=== PATIENT | female | born 1960 | race Caucasian/White ===

== ENCOUNTER 2020-02-20 14:34 | Outpatient (CLI) | payer SELFPAY ==
--- NOTE | 2020-02-20 14:46 | MM_ITS ---
WS: [id number] BILATERAL DIGITAL SCREENING MAMMOGRAPHY WITH CAD CLINICAL INFORMATION: SCREENING HISTORY: Screening mammogram. No current complaints. COMPARISON: None. TECHNIQUE: Bilateral CC and MLO views. FINDINGS: The breasts are composed of heterogeneous fibroglandular density tissue, which can limit the detectio n of small underlying mass lesions. No suspicious mass, asymmetry, calcifications, or architectural d istortion. No evidence of malignancy. Vascular calcification. MM/[id number] IMPRESSION: BI-RADS: 2-Benign FOLLOW UP: 1 Year Follow-up Recommend return to annual screening mammography.
== END 2020-02-20 14:35 | disposition home or self-care (01) ==
LOC: RADSHAW 14:39
PROVIDERS: PCP Nurse Practitioner Family; Visit Provider Nurse Practitioner Family
DX: Z12.31 Encounter for screening mammogram for malignant neoplasm of breast (principal)
CPT/HCPCS: 77067

== ENCOUNTER 2021-07-07 10:18 | Outpatient (CLI) | payer OTHER, SELFPAY ==
--- NOTE | 2021-07-07 10:29 | MM_ITS ---
WS: [id number] SCREENING DIGITAL MAMMOGRAM WITH CAD HISTORY: SCREENING COMPARISON: 02/20/2020. Bilateral CC and MLO views submitted. Computer aided detection analyzed. Breast composition: There are scattered areas of fibroglandular density. No suspicious masses or calc ifications. No distortion. MM/[id number] IMPRESSION: BI-RADS: 1-Negative FOLLOW UP: 1 Year Follow-up
== END 2021-07-07 10:19 | disposition home or self-care (01) ==
LOC: RADSHAW 10:25
PROVIDERS: PCP Family Medicine; Visit Provider Family Medicine
DX: Z12.31 Encounter for screening mammogram for malignant neoplasm of breast (principal)
CPT/HCPCS: 77067

== ENCOUNTER 2022-10-17 13:03 | Outpatient (CLI) | payer OTHER, SELFPAY ==
--- NOTE | 2022-10-17 13:19 | MM_ITS ---
WS: [id number] BILATERAL 3D TOMOSYNTHESIS DIGITAL SCREENING MAMMOGRAPHY WITH CAD CLINICAL INFORMATION: SCREENING HISTORY: Screening mammogram. No current complaints. COMPARISON: July 07, 2021 TECHNIQUE: Bilateral CC and MLO views. FINDINGS: The breasts are composed of heterogeneous fibroglandular density tissue, which can limit the detectio n of small underlying mass lesions. No suspicious mass, asymmetry, calcifications, or architectural d istortion. No evidence of malignancy. Vascular calcification. MM/[id number] IMPRESSION: BI-RADS: 2-Benign FOLLOW UP: 1 Year Follow-up Recommend return to annual screening mammography.
== END 2022-10-17 13:04 | disposition home or self-care (01) ==
LOC: RAD 13:05
PROVIDERS: PCP Family Medicine; Visit Provider Family Medicine
DX: Z12.31 Encounter for screening mammogram for malignant neoplasm of breast (principal)
CPT/HCPCS: 77063; 77067

== ENCOUNTER 2023-02-01 17:34 | Emergency (ER) | payer SELFPAY ==
[2023-02-01 17:42] VITALS: BP 160/76; PULSE 71; RESP 16; TEMP 37; O2SAT 97; BMI 30.9
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
== END 2023-02-01 18:57 | disposition home or self-care (01) ==
PROVIDERS: Emergency Provider Emergency Medicine; PCP Family Medicine
DX: S39.012A Strain of muscle, fascia and tendon of lower back, initial encounter (principal); V89.2XXA Person injured in unspecified motor-vehicle accident, traffic, initial encounter
CPT/HCPCS: 72072; 72100; 99283

== ENCOUNTER 2023-02-20 14:28 | Emergency (ER) | payer MEDICARE, SELFPAY ==
[2023-02-20 14:50] VITALS: BP 144/88; PULSE 88; RESP 14; TEMP 36.7; O2SAT 97; BMI 31.6
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
== END 2023-02-20 16:52 | disposition home or self-care (01) ==
PROVIDERS: Emergency Provider Physician Assistant; PCP Family Medicine
DX: S29.012A Strain of muscle and tendon of back wall of thorax, initial encounter (principal); V59.40XA Driver of pick-up truck or van injured in collision with unspecified motor vehicles in traffic accident, initial encounter
CPT/HCPCS: 72072; 99283

== ENCOUNTER 2023-09-18 18:40 | Emergency (ER) | payer MEDICARE, SELFPAY ==
[2023-09-18 18:50] VITALS: BP 170/77; PULSE 64; RESP 16; TEMP 36.6; O2SAT 97; BMI 34.9
--- NOTE | 2023-09-18 19:18 | ED_ITS ---
HPI - Female Genitourinary 2 General: Chief complaint: Urogenital-Female Stated complaint: Vaginal Issues Time Seen by Provider: 09/18/23 18:58 Source: patient Mode of arrival: ambulatory Limitations: no limitations History of Present Illness: 63yo female presents with family for con cerns of both her uterus and her bladder being prolapse. Patient states that she has had her uterus prolapse previously, but has always been able to get it back in. States that she has not yet seen her THERAPEUTIC RECREATION LEADER for her concerns. Reports that she did call today to get an appointment, but they did not call her back yet. Patient states that she is able to void and does have urinary frequency, but does not think that is anything new. Patient denies any fever, abdominal pain, vomiting, diarrhea. On exam, patient indicated pain to the mid abdomen, sharp in nature. Associated symptoms: Deny abdominal pain Review of Systems 2 Const: Denies: fever(s) or chills GI: Denies: abdominal pain or vomiting : Reports: urinary frequency; Denies: difficulty voiding Musc: Denies: back pain Physical Exam 2 Const: COMMON NORMALS: no acute distress and alert GENERAL APPEARANCE: c ooperative ORIENTATION/CONSCIOUSNESS: Yes awake OTHER: Patient is ambulatory to the exam room unassisted. She is sitting upright on the stretcher no acute distress. She is able to give history with no difficulty. Family is at bedside HENMT: COMMON NORMALS: normocephalic HEAD & SCALP: normocephalic Chest: CHEST: Yes Symmetrical chest wall rise Resp: COMMON NORMALS: normal respiratory effort EFFORT & INSPECTION: Yes able to speak in complete sentences Cardio: COMMON NORMALS: regular rate RATE: regular rate GI: COMMON NORMALS: Soft to palpation PALPATION: Yes Soft to palpation, Yes Tenderness to palpation present (GI) (midline low abdomen, just below umbilicus) Details: LLQ (mild) and other, No Guarding due to palpation present (GI) and No Rigid due to palpation Extremity: COMMON NORMALS: full ROM Neuro: SENSORIUM/ORIENTATION: Yes alert Psych: COMMON NORMALS: cooperative ATTITUDE: Yes calm Course 2 Reevaluation(s): Reevaluation #1: Prolasped vaginal wall reduced with no difficulty. Patient tolerated well. Time: 19:35 Vital Signs: Vital signs: Vital Signs Temperature 97.8 F 09/18/23 18:50 Pulse Rate 65 09/18/23 20:31 Respiratory Rate 16 09/18/23 20:31 Blood Pressure 164/66 09/18/23 20:31 Pulse Oximetry 97 09/18/23 20:31 Oxygen Delivery Me thod Room Air 09/18/23 20:31 MDM - Female Medical Decision Making 63yo female here with family for concern of prolapsed uterus and bladder. Patient states that she has had prolapsed uterus before, but was always able to get it back in. States that she has not yet seen her THERAPEUTIC RECREATION LEADER for her concerns. Patient does also report urinary frequency. However, on exam, patient did indicate that she had pain to just under her umbilicus midline and had left lower quadrant tenderness. Patient denies fever, chills, abdominal pain, vomiting, diarrhea, difficulty passing urine. Patient is nontoxic in appearance. Vital signs are stable. Prior differentials to include urinary tract infection, diverticulitis, neoplasm, viral infection White blood cell count noted to be elevated at 16.77. BUN is elevated at 32 with a creatinine of 1.4 and GFR of 37. Glucose is elevated at 191. Lipase is noted to be elevated at 86. Chest x-ray with no acute abnormalities noted. UA with 3+ protein, 4+ glucose, 3+ blood, nitrite positive. Urine microscopy with too numerous to count white blood cells, 25-40 white blood cells, and 3+ bacteria. Contrasted CTAP obtained due to left lower quadrant tenderness on exam and reveals hepatic steatosis, diverticulosis with no indication of diverticulitis, and findings suggestive of an ascending urinary tract infection bilaterally, but no evidence of pyelonephritis at this time. Patient did receive 500 mL normal saline bolus as well as 2 g ceftriaxone while in the emergency department. Prescription for cefdinir was sent to patient's pharmacy for continuation of antibiotic therapy for acute cystitis. A referral was placed to Dr. Hagen, PLANT PROPAGATOR for the prolapsed vaginal wall. Recommend she follow- up with her primary care in about a week for recheck to ensure resolution of the urinary tract infection and to discuss the incidental findings of diverticulosis and hepatic steatosis. Advised to return to the emergency department if any rapid worsening symptoms, onset of fever associated with worsening, and as needed. Patient and family state understanding and have no further questions or concerns at this time. Differential Diagnosis Likely abdominal pain and diverticulitis Medical Records I reviewed the patient's medical records. Lab Data I reviewed the patient's lab results. 09/18/23 19:57 09/18/23 19:57 Radiology Impressions Chest X-Ray 09/18/23 20:05 IMPRESSION: 1. No acute cardiopulmonary abnormality. Abdomen/Pelvis CT 09/18/23 20:30 IMPRESSION: 1. Findings suggestive of ascending urinary infection bilaterally. No evidence of pyelonephritis. Laboratory Results WBC 16.77 10^3/uL (3.29-11.43) H 09/18/23 19:57 RBC 4.28 10^6/uL (3.85-5.65) 09/18/23 19:57 Hgb 12.30 g/dL (11.27-16.99) 09/18/23 19:57 Hct 38.0 % (36-47) 09/18/23 19:57 MCV 88.8 fl (85-98) 09/18/23 19:57 MCH 28.7 pg (27-33) 09/18/23 19:57 MCHC 32.4 g/dL (30-55) 09/18/23 19:57 RDW 12.1 % (12.1-15.1) 09/18/23 19:57 Plt Count 314 10^3/cmm (157-399) 09/18/23 19:57 MPV 10.6 fL (7.4-10.4) H 09/18/23 19:57 Neut % (Auto) 84.9 % 09/18/23 19:57 Lymph % (Auto) 9.2 % 09/18/23 19:57 [place] % (Auto) 4.9 % 09/18/23 19:57 Eos % (Auto) 0.1 % 09/18/23 19:57 Baso % (Auto) 0.5 % 09/18/23 19:57 Neut # (Auto) 14.24 10^3/uL (1.8-7.7) H 09/18/23 19:57 Lymph # (Auto) 1.5 10^3/uL (0.8-4.8) 09/18/23 19:57 [place] # (Auto) 0.8 10^3/uL (0.2-0.9) 09/18/23 19:57 Eos # (Auto) 0.0 10^3/uL (0.0-0.8) 09/18/23 19:57 Baso # (Auto) 0.1 10^3/uL (0.0-0.1) 09/18/23 19:57 Nucleated RBC % (auto) 0 % 09/18/23 19:57 Nucleated RBCs # 0.0 /100WBC 09/18/23 19:57 Sodium 135 mmol/L (136-145) L 09/18/23 19:57 Potassium 5.0 mmol/L (3.5-5.1) 09/18/23 19:57 Chloride 100 mmol/L (98-107) 09/18/23 19:57 Carbon Dioxide 24 mmol/L (22-29) 09/18/23 19:57 Anion Gap 16.0 (5-19) 09/18/23 19:57 BUN 32 mg/dL (8-23) H 09/18/23 19:57 Creatinine 1.4 mg/dL (0.5-0.9) H 09/18/23 19:57 GFR Calculation 37.7 mL/min (90-130) L 09/18/23 19:57 Glucose 191 mg/dL (65-115) H 09/18/23 19:57 Calculated Osmolality 292 mOsm/kg (285-295) 09/18/23 19:57 Calcium 9.5 mg/dL (8.5-10.5) 09/18/23 19:57 Total Bilirubin 0.4 mg/dL (0.15-1.2) 09/18/23 19:57 AST 17 U/L (0-32) 09/18/23 19:57 ALT 17 U/L (0-33) 09/18/23 19:57 Alkaline Phosphatase 83 U/L (35-105) 09/18/23 19:57 Total Protein 8.2 g/dL (6.6-8.7) 09/18/23 19:57 Albumin 4.0 g/dL (3.5-5.2) 09/18/23 19:57 Globulin 4.2 g/dL (1.3-4.6) 09/18/23 19:57 Lipase 86 U/L (13-60) H 09/18/23 19:57 Urine Color Light yellow (Yellow) 09/18/23 20:25 Urine Appearance Cloudy (CLEAR) A 09/18/23 20:25 Urine pH 6 (5-7) 09/18/23 20:25 Ur Specific [place] 1.010 (1.005-1.030) 09/18/23 20:25 Urine Protein 3+ (Negative) H 09/18/23 20:25 Urine Glucose (UA) 4+ (Normal) H 09/18/23 20:25 Urine Ketones 1+ (Negative) H 09/18/23 20:25 Urine Blood 3+ (Negative) H 09/18/23 20:25 Urine Nitrate Positive (Negative) H 09/18/23 20:25 Urine Bilirubin Neg (Negative) 09/18/23 20: Urine Urobilinogen Neg mg/dL (Negative) 09/18/23 20:25 Ur Leukocyte Esterase 2+ (Negative) H 09/18/23 20:25 Urine RBC 25-40 /hpf (0-2) H 09/18/23 20:25 Urine WBC Too numerous to cnt /hpf (0-5) H 09/18/23 20:25 Ur Squamous Epith Cells None /hpf (0-5) 09/18/23 20:25 Amorphous Sediment Not Reportable 09/18/23 20:25 Urine Bacteria 3+ /hpf (NONE) H 09/18/23 20:25 All radiology interpretation(s) finalized by discharge Discharge Plan Discharge Patient Disposition: Home Clinical Impression: Urinary tract infection, Prolapse of vaginal wall, Diverticulosis, Steatosis of liver, Elevated serum creatinine Condition: Stable Prescriptions: New cefdinir 300 mg capsule 300 mg PO BID Qty: 14 0RF No Action methocarbamol 750 mg tablet 750 mg PO Q6H PRN (Reason: spasms) Qty: 20 0RF Naprosyn 500 mg tablet 500 mg PO BID PRN (Reason: pain) Qty: 20 0RF Discharge Orders: Discharge ED (Routine); Ordered 09/18/23 Ordered By: Huang Warren Referrals: Gautam Woodward MD [Primary Care Provider] - Jesus Hagen MD [Physician] - (Vaginal wall prolapse) Discharge Diet: Usual diet Discharge Activity: Resume usual activity Patient Instructions: Diverticulosis (ED), Urinary Tract Infection in Women (ED), Non-Alcoholic Fatty Liver Disease (ED), Diverticulitis Diet (ED), Anterior Vaginal Repair (DC) Activity Restrictions/Additional Instructions: Your urine and the CT scan did indicate a urinary tract infection that was working its way to your kidneys. The infection has not yet reached your kidneys, but we have started treatment as if it were in your kidneys to be safe. You received IV antibiotics while in the emergency department and a prescription of cefdinir has been sent to your pharmacy for continuation of antibiotic therapy for the urinary tract infection The CT scan did have incidental findings of diverticulosis as well as hepatic steatosis. Please see provided handouts with information about these findings. 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
--- NOTE | 2023-09-18 20:05 | XRR_ITS ---
PROCEDURE INFORMATION: Exam: XR Chest Exam date and time: 09/18/2023 8:07 PM Age: 63 years old Clinical indication: Cough TECHNIQUE: Imaging protocol: Radiologic exam of the chest. Views: 1 view. COMPARISON: CR XR thoracic spine 3V* [id number] 02/20/2023 4:14 PM FINDINGS: Lungs: No focal consolidation. Pleural spaces: No evidence of pneumothorax. No evidence of pleural effusion. Heart/Mediastinum: Cardiomediastinal silhouette is within normal limits. Bones/joints: No evidence of acute osseous abnormality. XR/XR chest 1V portable [id number] IMPRESSION: 1. No acute cardiopulmonary abnormality.
[2023-09-18 20:15] LABS: Basophils # 0.1 10^3/uL (0.0-0.1); Basophils % 0.5 %; Eosinophils % 0.1 %; Lymphocytes # 1.5 10^3/uL (0.8-4.8); Lymphocytes % 9.2 %; Mean Corpuscular HGB Conc 32.4 g/dL (30-55); Mean Corpuscular Hemoglobin 28.7 pg (27-33); Mean Corpuscular Volume 88.8 fl (85-98); Mean Platelet Volume 10.6 fL (7.4-10.4); Monocytes # 0.8 10^3/uL (0.2-0.9); Monocytes % 4.9 %; Neutrophils # 14.24 10^3/uL (1.8-7.7); Neutrophils % 84.9 %; Nucleated Red Blood Cells % 0 %; Platelet Count 314 10^3/cmm (157-399); Red Blood Count 4.28 10^6/uL (3.85-5.65); Red Cell Distribution Width 12.1 % (12.1-15.1); White Blood Count 16.77 10^3/uL (3.29-11.43)
[2023-09-18 20:20] LABS: Alanine Aminotransferase 17 U/L (0-33); Alkaline Phosphatase 83 U/L (35-105); Aspartate Amino Transferase 17 U/L (0-32); Blood Urea Nitrogen 32 mg/dL (8-23); Calcium 9.5 mg/dL (8.5-10.5); Carbon Dioxide 24 mmol/L (22-29); Chloride 100 mmol/L (98-107); Globulin 4.2 g/dL (1.3-4.6); Glomerular Filtration Rate 37.7 mL/min (90-130); Glucose 191 mg/dL (65-115); Lipase 86 U/L (13-60); Osmolality Calculated 292 mOsm/kg (285-295); Sodium 135 mmol/L (136-145); Total Bilirubin 0.4 mg/dL (0.15-1.2); Total Protein 8.2 g/dL (6.6-8.7)
[2023-09-18 20:28] VITALS: BP 164/66; PULSE 60; O2SAT 100
--- NOTE | 2023-09-18 20:30 | CTR_ITS ---
PROCEDURE INFORMATION: Exam: CT Abdomen And Pelvis With Contrast Exam date and time: 09/18/2023 8:59 PM Age: 63 years old Clinical indication: Abdominal pain; Localized; Left lower quadrant (llq); Patient HX: C/O llq pain. History of uterine prolapse. ; Additional info: Llq abd pain TECHNIQUE: Imaging protocol: Computed tomography of the abdomen and pelvis with contrast. Radiation optimization: All CT scans at this facility use at least one of these dose optimization techniques: automated exposure control; mA and/or kV adjustment per patient size (includes targeted exams where dose is matched to clinical indication); or iterative reconstruction. Contrast material: OMNI 350; Contrast volume: 80 ml; Contrast route: INTRAVENOUS (IV); COMPARISON: CR (PELVIS, ) 02/01/2023 6:06 PM RADIATION DOSE METRICS: Total DLP (mGy-cm): 983.15 FINDINGS: Lungs: Subsegmental bibasilar atelectasis. The visualized lung bases are otherwise grossly clear. Diaphragm: No evidence of diaphragmatic defect. Liver: Hepatic steatosis. No evidence of focal hepatic lesion. Gallbladder and bile ducts: Unremarkable. No intra-hepatic or extra-hepatic biliary dilatation. Pancreas: Unremarkable. Spleen: Multiple splenic calcifications compatible with sequela of a remote granulomatous process. Otherwise grossly unremarkable. Adrenal glands: Indeterminate left adrenal nodules measuring up to 2 cm. If not previously characterized, this can be further evaluated with nonemergent adrenal protocol CT or MRI. Kidneys and ureters: Bilateral peripelvic and periureteral inflammatory changes with the urothelial thickening suggestive of ascending urinary infection. No evidence of pyelonephritis.There is a simple appearing left-sided renal cyst for which dedicated imaging follow-up is not required. No ureteral stone. Stomach and bowel: Diverticulosis without evidence of acute diverticulitis. No bowel obstruction or perienteric inflammatory changes. Appendix: The appendix is not visualized, however there are no findings to suggest appendicitis. Intraperitoneal space: No evidence of free air or fluid collection. Vasculature: Mild aortobiiliac atherosclerosis without aneurysmal dilatation or dissection. The celiac trunk, SMA and NICOLE are grossly patent. No evidence of IVC thrombus. The portal vein, SMV and splenic veins are grossly patent. Lymph nodes: No adenopathy. Urinary bladder: Moderate diffuse bladder wall thickening/haziness. Otherwise grossly unremarkable. Reproductive: Grossly unremarkable. Bones/joints: No evidence of acute fracture or aggressive osseous lesion. Soft tissues: No evidence of fluid collection or hematoma in the superficial soft tissues. CT/CT abdomen pelvis w con* [id number] IMPRESSION: 1. Findings suggestive of ascending urinary infection bilaterally. No evidence of pyelonephritis.
[2023-09-18 20:31] VITALS: BP 164/66; PULSE 65; RESP 16; O2SAT 97
[2023-09-18 20:50] LABS: Add Urine Microscopic? YES; Bilirubin Urine Neg (Negative); Blood Urine 3+ (Negative); Glucose Urine UA 4+ (Normal); Ketones Urine 1+ (Negative); Leukocyte Esterase Urine 2+ (Negative); Nitrate Urine Positive (Negative); Protein Urine 3+ (Negative); Urine Appearance Cloudy (CLEAR); Urine Color Light yellow (Yellow); Urobilinogen Urine Neg (Negative); pH Urine 6 (5-7)
[2023-09-18 20:51] LABS: Bacteria Urine 3+ /hpf; RBC Urine 25-40 /hpf (0-2); WBC Urine TOO NUMEROUS TO CNT /hpf (0-5)
[2023-09-18 20:52] LABS: Add Urine Culture? Yes
[2023-09-18] MEDS: iohexol 350 mg/mL 500 mL Btl (per mL) IV (21:02)
[2023-09-18] MEDS: sodium chloride 0.9% 500 ML 999 ML IV (22:30)
[2023-09-18] MEDS: cefTRIAXone 2,000 MG in sodium chloride 0.9% (plus) 50 ML 100 MG IV (22:30)
[2023-09-18 23:42] VITALS: BP 147/67; PULSE 80; RESP 16; O2SAT 100
== END 2023-09-18 23:45 | disposition home or self-care (01) ==
PROVIDERS: Emergency Provider Nurse Practitioner; PCP Family Medicine
DX: N81.10 Cystocele, unspecified (principal); N39.0 Urinary tract infection, site not specified; K57.90 Diverticulosis of intestine, part unspecified, without perforation or abscess without bleeding; K76.0 Fatty (change of) liver, not elsewhere classified; R74.8 Abnormal levels of other serum enzymes
CPT/HCPCS: 71045; 74177; 80053; 81001; 83690; 85025; 87077; 87086; 87186; 96365; 99285; J0696; J7040; Q9967

== ENCOUNTER 2023-11-15 13:09 | Outpatient (CLI) | payer MEDICARE, SELFPAY ==
--- NOTE | 2023-11-15 13:12 | XR_ITS ---
WS: [id number] DEXA (DUAL ENERGY X-RAY ABSORPTIOMETRY) Bone mineral density was performed using a [employer] machine. HISTORY: OSTEOPOROSIS SCREENING COMPARISON: None available. Lumbar spine BMD (L1-L4): 1.401 g/cm2 T score: 1.8 Z score: 3.1 Total hip BMD: Left: 0.906 g/cm2. T score: -0.8 Z score: 0.2 Right: 0.930 g/cm2. T score: -0.6 Z score: 0.4 10 year probability of a major osteoporotic fracture is 10.4%. IMPRESSION: NORMAL BONE MINERAL DENSITY based upon the WHO classification for females.
--- NOTE | 2023-11-15 13:12 | MM_ITS ---
WS: [id number] BILATERAL 3D TOMOSYNTHESIS DIGITAL SCREENING MAMMOGRAPHY WITH CAD CLINICAL INFORMATION: SCREENING HISTORY: Screening mammogram. No current complaints. COMPARISON: 2022 TECHNIQUE: Bilateral CC and MLO views. FINDINGS: The breasts are composed of heterogeneous fibroglandular density tissue, which can limit the detectio n of small underlying mass lesions. No suspicious mass, asymmetry, calcifications, or architectural d istortion. No evidence of malignancy. Vascular calcification. IMPRESSION: MM/[place] [id number] BI-RADS: 2-Benign FOLLOW UP: 1 Year Follow-up Recommend return to annual screening mammography.
== END 2023-11-15 13:10 | disposition home or self-care (01) ==
LOC: RAD 13:09
PROVIDERS: PCP Family Medicine; Visit Provider Family Medicine
DX: Z12.31 Encounter for screening mammogram for malignant neoplasm of breast (principal); Z13.820 Encounter for screening for osteoporosis; Z78.0 Asymptomatic menopausal state
CPT/HCPCS: 77063; 77067; 77080

== ENCOUNTER 2024-02-20 15:18 | Observation (INO) | payer MEDICARE, SELFPAY ==
[2024-02-12 10:22] LABS: Basophils % 0.5 %; Eosinophils # 0.1 10^3/uL (0.0-0.8); Eosinophils % 1.5 %; Hematocrit 39.2 % (36-47); Lymphocytes # 2.7 10^3/uL (0.8-4.8); Lymphocytes % 30.9 %; Mean Corpuscular HGB Conc 32.4 g/dL (30-55); Mean Corpuscular Hemoglobin 29.3 pg (27-33); Mean Corpuscular Volume 90.3 fl (85-98); Mean Platelet Volume 10.9 fL (7.4-10.4); Monocytes # 0.5 10^3/uL (0.2-0.9); Monocytes % 6.1 %; Neutrophils # 5.36 10^3/uL (1.8-7.7); Neutrophils % 60.7 %; Nucleated Red Blood Cells % 0 %; Platelet Count 226 10^3/cmm (157-399); Red Blood Count 4.34 10^6/uL (3.85-5.65); White Blood Count 8.83 10^3/uL (3.29-11.43)
--- NOTE | 2024-02-12 10:27 | ANES.PREANE2 ---
Pre-Anesthetic Assessment Height/Weight: Height 1.52 m Preop Diagnosis: uterovaginal prolapse, cystocele and rectocele Operation Date: 02/20/24 10:30 Proposed Procedures p Total Vaginal Hysterectomy 39034, 69830, 76937, 24299, N81.2(Not Applicable) - MD july Ladnon Salpingo-Oophorectomy (Vaginal)(Bilateral) - MD july Landon Anterior Repair Anterior Colporrhaphy(Not Applicable) - MD july Landon Posterior Repair Posterior Colporrhaphy(Not Applicable) - MD july Landon Sling(Not Applicable) - MD july Landon Sacrospinous Ligament Suspension Sacrospinous Fixation(Not Applicable) - Aaron Allen MD Familial anesthetic complications: Noen Was Beta Peter taken within 24 hours: N/A Was Clonidine taken within 24 hours: N/A Social No alcohol and No tobacco Exam alert, oriented x 3, clear to auscultation bilaterally and regular rate & rhythm Airway Mallampati: Class II Dentition: chipped CV/HEM Hypertension Metabolic Diabetes Mellitus Neuropsych Cerebrovascular Accident (10 years ago - no residual deficits) Anesthetic Plan ASA status: 3 Anesthesia: General Risk of > 500 ml blood loss (7ml/kg in children): No Medications/Allergies Home Medications Medication Instructions Recorded Confirmed Last Taken Type aspirin 325 mg tablet 325 mg PO DAILY 10/20/23 02/12/24 02/11/24 History dapagliflozin propanediol 5 mg 5 mg PO DAILY 10/20/23 02/12/24 02/12/24 History tablet (Farxiga) lisinopril 10 mg tablet 10 mg PO DAILY 10/20/23 02/12/24 02/12/24 History melatonin 5 mg capsule 5 mg PO BEDTIME 10/20/23 02/12/24 02/11/24 History metformin 850 mg tablet 850 mg PO DAILY 10/20/23 02/12/24 02/12/24 History pravastatin 40 mg tablet 40 mg PO BEDTIME 10/20/23 02/12/24 02/11/24 History Allergies Allergy/AdvReac Type Severity Reaction Status Date / Time No Known Allergies Allergy Verified 02/12/24 08:02 [facility] Anesthesia Family History Sister Heart disease Father Hyperlipidemia Hypertension Diabetes Denies family history of Colon cancer Ovarian cancer Breast cancer Uterine cancer Thyroid disease Stroke Data Anesthesia 02/12/24 10:01 02/12/24 10:01 Short CBC 02/12/24 Range/Units 10:01 WBC 8.83 (3.29-11.43) 10^3/uL Hgb 12.70 (11.27-16.99) g/dL Hct 39.2 (36-47) % MCV 90.3 (85-98) fl Plt Count 226 (157-399) 10^3/cmm Neut % (Auto) 60.7 % Neut # (Auto) 5.36 (1.8-7.7) 10^3/uL Cardiac Studies: No Data to Display
[2024-02-12 10:38] LABS: Alanine Aminotransferase 16 U/L (0-33); Albumin Level 4.2 g/dL (3.5-5.2); Alkaline Phosphatase 77 U/L (35-105); Anion Gap 13.2 (5-19); Aspartate Amino Transferase 19 U/L (0-32); Blood Urea Nitrogen 41 mg/dL (8-23); Calcium 9.8 mg/dL (8.5-10.5); Carbon Dioxide 28 mmol/L (22-29); Chloride 103 mmol/L (98-107); Globulin 3.8 g/dL (1.3-4.6); Glomerular Filtration Rate 44.9 mL/min (90-130); Glucose 95 mg/dL (65-115); Osmolality Calculated 298 mOsm/kg (285-295); Potassium 5.2 mmol/L (3.5-5.1); Sodium 139 mmol/L (136-145); Total Bilirubin 0.4 mg/dL (0.15-1.2)
[2024-02-12 10:55] LABS: Bilirubin Urine Neg (Negative); Blood Urine 2+ (Negative); Ketones Urine Negative (Negative); Leukocyte Esterase Urine 2+ (Negative); Nitrate Urine Negative (Negative); Protein Urine Neg (Negative); Urine Appearance Slightly Cloudy (CLEAR); Urine Color Yellow (Yellow); Urobilinogen Urine Norm (Negative); pH Urine 8 (5-7)
[2024-02-12 10:56] LABS: Add Urine Microscopic? YES; Glucose Urine UA 4+ (Normal)
[2024-02-12 10:58] LABS: Add Urine Culture? Yes; Bacteria Urine 4+ /hpf; Squamous Epithelial Cell Urine 0-4 /hpf (0-5); Transitional Epi Cells Urine 0-4 /hpf; WBC Urine 15-25 /hpf (0-5)
[2024-02-20] VITALS (20 sets, daily range): BP systolic 91–142; BP diastolic 48–75; PULSE 58–73; RESP 16–18; TEMP 36.2–36.7; O2SAT 90–99; BMI 30.4
[2024-02-20 06:32] LABS: Glucose Point of Care 87 mg/dL (70-110)
--- NOTE | 2024-02-20 06:36 | ECG_ITS ---
[facility] Test Date: 2024-02-20 Pat Name: Elaine Fraire Department: Room: Gender: Female Medical Office Asst: : 1960 Requested By: Aaron Martinez Order Number: [id number] Tio MD: Jeronimo Trinh M.D. Measurements Intervals [place] Rate: 58 P: 23 OK: 180 QRS: 11 QRSD: 86 T: 43 QT: 425 QTc: 418 Interpretive Statements SINUS BRADYCARDIA No previous ECG available for comparison Electronically Signed On 02-20-2024 21:35:52 CDT by Jeronimo Trinh M.D. [id number]
[2024-02-20] MEDS: scopolamine 1.5 Patch 1 PATCH TRANSDERMA (06:54)
[2024-02-20] MEDS: enoxaparin 40 mg/0.4 mL Syringe SUBCUT (06:54)
[2024-02-20] MEDS: sodium chloride 0.9% 500 ML IV (06:57)
--- NOTE | 2024-02-20 07:18 | P.ANESUD_ITS ---
Pre-Anesthetic Update Pre-Anesthetic Assessment: Date of Surgery/Procedure: 02/20/24 Preop Shabana gnosis: uterovaginal prolapse, cystocele and rectocele Proposed Procedure: Operation Date: 02/20/24 08:00 Proposed Procedures p Total Vaginal Hysterectomy 81562, 49191, 39472, 30105, N81.2(Not Applicable) - MD july Landon Salpingo-Oophorectomy (Vaginal)(Bilateral) - MD july Landon Anterior Repair Anterior Colporrhaphy(Not Applicable) - MD july Landon Posterior Repair Posterior Colporrhaphy(Not Applicable) - MD july Landon Sling(Not Applicable) - MD july Landon Sacrospinous Ligament Suspension Sacrospinous Fixation(Not Applicable) - Aaron Allen MD Any changes to Pre-Anesthetic Assessment?: No Last Intake: Intake Last Liquid Date 02/19/24 Last Liquid Time 21:00 Last Solid Date 02/19/24 Last Solid Time 18:00 Vitals: Temperature 97.8 F 02/20/24 06:22 Temperature Source Temporal Artery S can 02/20/24 06:22 Pulse Rate 58 L 02/20/24 06:22 Respiratory Rate 18 02/20/24 06:22 Blood Pressure 142/68 02/20/24 06:22 Blood Pressure Georgina n 92 02/20/24 06:22 Pulse Oximetry 99 02/20/24 06:22 Oxygen Delivery Me thod Room Air 02/20/24 06:24 Exam: Pre-Anes Outpt Exam: alert, oriented x 3, clear to auscultation bilaterally and regular rate & rhythm Cardiac Studies: No Data to Display
[2024-02-20] MEDS: sodium chloride 0.9% 1,000 ML 30 ML IV (07:42)
[2024-02-20] MEDS: ceFOXitin 2,000 mg SDV 2000 MG IVP (08:00)
[2024-02-20] MEDS: lidocaine-epi 2% PF 1:200,000 20 mL SDV XX ×2 (08:44→09:46)
--- NOTE | 2024-02-20 11:02 | P.OP_ITS ---
Operative Report Date of procedure: February 20, 2024 Pre-op diagnosis: Uterine prolapse Cystocele Rectocele Post-op diagnosis: same Procedure done: Total vaginal hysterectomy with bilateral salpingo-oophorectomy Anterior colporrhaphy augmented with allograft Mid urethral sling Posterior colporrhaphy Sacrospinous fixation Cystoscopy Specimens removed/disposition: Uterus Left the right fallopian tube and ovaries Surgeon: Aaron Allen MD Estimated blood loss (mL): 150 IV fluids (mL): 1,300 Urine output (mL): 200 Complications: None Procedure: After informed consent and risks, benefits, indications and alternatives reviewed with the patient was taken to the operating room. The patient was placed in dorsal lithotomy position prepped, and draped in the usual sterile fashion. The pre-procedure timeout verifying the correct patient, procedure, site and side, could not requirements was performed and acknowledge by the OR team. A Ortiz catheter was placed. A Bookwalter vaginal retractor was placed into the vagina in usual manner visualize the cervix. Cervix was grasped with a single tooth tenaculum and circumferentially infiltrated with 2% lidocaine with epinephrine. Then cervix was circumferentially incised with bovie and the bladder was dissected off the pubovesical cervical fascia anteriorly with a sponge stick and Metzenbaum scissors. The anterior peritoneal reflection was identified and the anterior cul-de-sac was entered sharply with Metzenbaum scissors. The same procedure was performed posteriorly and a posterior colpotomy was made through the posterior cul-de-sac space without difficulty and the posterior blade of the Bookwalter vaginal retractor was advanced posteriorly into the cul-de-sac. At this time, the left and right uterosacral ligaments were isolated and ligated with 0 Vicryl. The LigaSure device was placed over the uterosacral ligaments on either side and was then used in a serial fashion up through the cardinal ligaments bilaterally cross-clamped, cut, and sealed with the LigaSure device. Finally, the uterine arteries were cross-clamped, cut, sealed and ligated with the LigaSure device. Hemostasis was assured. The broad ligaments were then serially clamped, sealed and cut with the LigaSure device on both sides. Excellent hemostasis was visualized. Both cornua were clamped, sealed and cut with the LigaSure device. Then the pedicles were then suture ligated with excellent hemostasis. The uterus was excised and submitted for pathologic evaluation. No other abnormalities were noted in the pelvic cavity. The peritoneum was then closed in a pursestring fashion with 0 Vicryl suture. The vaginal cuff angles were closed with [id number] #0 Vicryl suture on both sides and transfixed with the ipsilateral cardinal and uterosacral ligaments. The remainder of the vaginal cuff was closed with #0 Vicryl in a running locked fashion. A vertical midline incision was made beneath the midurethra, nearly 1.5 cm length. Careful submucosal dissection was performed bilaterally up to the interior portion of the inferior pubic ramus. The insertion of adductor longus tendon on the patient?s pubic ramus was identified as reference land eulalia. Palpated the notch along the internal edge of ischiopubic ramus where the adductor longus tendon and the inferior pubic ramus meet. The Altis single incision sling (SIS) was selected. Then the needle of the SIS inserted aiming at the location of this notch. One of the integrated self-fixating tips place onto the needle by sliding it over the end of the needle. The needle/sling assembly was inserted toward the location of identified reference notch making sure that the flat of the handle is perpendicular to the desired path. The needle was tracked along the posterior surface of the ischiopubic ramus until the midline eulalia on the mesh is approximately at the midline position under the urethra. The needle was removed and the same was repeated on the contralateral side until the appropriate sling tension under the urethra was achieved ensuring that the mesh lays flat. The needle was removed and vaginal incision was closed in a running interlocking fashion with 2-0 Vicryl. The vaginal mucosa was then injected in the midline with normal saline. The vaginal mucosa was scored in the midline with the Bovie approximately 1 cm me dial to the urethral meatus to 1 cm distal to the vaginal cuff. This vaginal mucosa was then undermined and then incised in the midline with the Metzenbaum scissors. The lateral aspects of the vaginal mucosa were then grasped with the Allis clamps and the vaginal mucosa was then dissected off the underlying fascia with the Metzenbaum scissors. Again, there was noted to be quite a bit of oozing at the incision, which was controlled with cautery. After adequate dissection was performed, bilaterally. A Coloplast dermis allograft modified at time of application to fit spacea, 4 x 4 cm piece . The Coloplast allograft was placed in front of cystocele ready to be implanted facing the vagina mucosa. Suture is placed at distal end of graft and placed towards vaginal cuff. Final suture is placed on proximal portion of the graft to complete the placement overlying the bladder. Then Interrupted vertical mattress sutures of 0 Vicryl were used to elevate the cystocele superiorly. The excessive vaginal mucosa was then trimmed with the Metzenbaum scissors and the vaginal mucosa was then reapproximated in the running interlocking fashion with 2-0 Vicryl. The posterior vaginal mucosa is opened in the routine fashion as described previously in Posterior Repair. A finger is inserted through the incision in the posterior vaginal mucosa, dissecting out the rectovaginal space (RVS). The right rectal pillar (RRP) is identified. The rectal pillar can be bluntly perforated either with the finger or with the tip of a long Janeen clamp. A thing malleable been retractor is used for exposing the rectovaginal space in order to enter the pararectal space with retraction of the cardinal ligament, vagina, and rectum. Displacing the rectum to the left and the cardinal ligament and ureter anteriorly. A sponge dissector is used to bluntly dissect the sacrospinous ligament removing areolar tissue. The ischial spine was palpated directly, and a area approximately 2 cm medial to the spine was selected for insertion of the Anchorsure transvaginal sacrospinous fixation system. One end of the suture of Anchoresure system inserted through the sacrospinous ligament is placed through the muscular layer of the vagina. In a similar manner, the second suture is placed. The opposite end of the suture in the sacrospinous ligament is left free and held on a small hemostat. Then traction on this suture will draw the vaginal vault directly to the ligament, where a square knot affixes it to the sacrospinous ligament. After the joshua stich is tied the second safety stich is tied. Then the colporrhaphy/vaginal repair is carried out in routine fashion. At this point, the rectum was from the posterior vaginal mucosa using sharp and blunt dissection, and the rectal bulge imbricated in the midline with interrupted sutures of 2-0 vicryl suture. Levator ani muscles on either side were approximated in the midline with interrupted 0 Vicryl sutures. Excess posterior vaginal mucosa was excised, and the vaginal episiotomy was repaired by approximating the posterior vaginal mucosa with a suture of Vicryl #0. At this time, instruments were removed from the vagina at hemostasis assured. Then the Ortiz catheter was removed and cystoscope was inserted. The bladder was filled with sterile water. Complete evaluation of the bladder mucosa was performed noting no lacerations, dimpling, tears, bleeding of the mucosa or muscular layers. Both ureteral orifices were identified. Prompt excretion of urine from both ureteral orifices was noted. Cystoscope was withdrawn. Ortiz catheter was then placed yielding clear santana urine. A vaginal packing with Premarin cream was placed and the patient was taken out of dorsal lithotomy position and awakened from the general anesthesia. The patient tolerated the procedure well and was taken to the PACU recovery room in a stable condition. Sponge, lap, needle and instruments counts were correct x3.
--- NOTE | 2024-02-20 11:11 | W.PM.BPON ---
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 Findings of the procedure(s): Uterine prolapse cystocele and rectocele Estimated blood loss: 150 mL Specimen(s) removed: Uterus, left and right ovary and fallopian tube Post-operative diagnosis: Status post Total vaginal hysterectomy with bilateral salpingo-oophorectomy, anterior colporrhaphy augmented with allograft, mid urethral sling, posterior colporrhaphy, sacrospinous fixation and cystoscopy.
--- NOTE | 2024-02-20 11:55 | ANE.PACU2 ---
Inpatient post-anesthesia follow up: Airway intact: Yes Vital signs: Temperature 97.2 F Pulse Rate 67 Respiratory Rate 18 Blood Pressure 123/48 Pulse Oximetry 93 Oxygen Delivery Me thod Room Air Oxygen Flow Rate 6 Fraction of Inspir ed Oxygen Hydration adequate: Yes Nausea and vomiting: No Pain level: 1 Mental status: Baseline
[2024-02-20] MEDS: sodium chloride 0.9% 1,000 ML 125 ML IV (17:00)
[2024-02-20] MEDS: ketorolac 30 mg/mL INJ IVP (18:35)
[2024-02-20] MEDS: docusate sodium 100 mg Capsule PO (18:35)
[2024-02-20] MEDS: nitrofurantoin SR (BID) 100 mg Capsule PO (18:35)
[2024-02-20] MEDS: atorvastatin 40 mg Tablet PO (20:50)
[2024-02-21] MEDS: ketorolac 30 mg/mL INJ IVP ×2 (00:42→07:05)
[2024-02-21 05:59] LABS: Hematocrit 28.6 % (36-47); Mean Corpuscular HGB Conc 32.9 g/dL (30-55); Mean Corpuscular Hemoglobin 29.6 pg (27-33); Mean Corpuscular Volume 89.9 fl (85-98); Mean Platelet Volume 10.7 fL (7.4-10.4); Platelet Count 167 10^3/cmm (157-399); Red Blood Count 3.18 10^6/uL (3.85-5.65); Red Cell Distribution Width 12.2 % (12.1-15.1); White Blood Count 17.96 10^3/uL (3.29-11.43)
[2024-02-21 07:05] VITALS: BP 137/72; PULSE 50; RESP 18; TEMP 36.6; O2SAT 98
--- NOTE | 2024-02-21 09:44 | P.DS_ITS ---
Discharge Providers CERTIFIED NUCLEAR MEDICINE TECHNOLOGIST Date of Admission: 02/20/24 15:18 Date of Discharge: 02/21/24 Attending Provider at Admission: Aaron Allen MD Attending Provider at Discharge: Aaron Allen MD Primary Care Provider: Gautam Woodward MD Reason for Visit Reason for Visit: N81.2 Hospital Course Hospital Course Ms. Fraire is a 63 year old , with stage III uterine prolapse associated with cystocele and rectocele. She was admitted for planned total vaginal hysterectomy with bilateral salpingo-oophorectomy, anterior colporrhaphy augmented with allograft, mid urethral sling, posterior colporrhaphy and sacrospinous fixation. The procedures were performed without complication. Overnight observation was uneventful. PVR within normal limits. Tolerating diet well. Ambulating without difficulty. Pain well under control. Patient was counseled regarding limitation on weight lifting no greater than 10 pounds and pelvic rest for 6 weeks (no sex, no tampons, no vaginal douches). Return to the emergency room if any fever, increased bleeding or pain. Physical Exam Narrative: GA: Alert and oriented ?3. HEENT: WNL. Heart: Regular rate and rhythm. Lungs: Clear to auscultation bilaterally. Abdomen: Bowel sounds present, nontender. 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 Extremities: No edema, no cyanosis, no calves pain. Urinary Catheter Management: Ortiz: Cath Placed During This Visit: yes, but has since been removed by the nurse Reason for Continuing Indwelling Catheter: Decision to DC Catheter Urinary Catheter Date of Insertion: 02/20/24 Urinary Catheter Time of Insertion: 08:37 Date Urinary Catheter Removed: 02/21/24 Time Urinary Catheter Discontinued: 05:30 History History History 4 Term 4 0 Miscarriages/Ectopic 0 Living Children 4 Discharge Data Studies Completed and Pending Pending at discharge Category Date Time Status Pathology: Surgical [PTH] Routine Pth 02/20/24 09:05 Received Laboratory Results WBC 17.96 10^3/uL (3.29-11.43) H 02/21/24 05:48 RBC 3.18 10^6/uL (3.85-5.65) L 02/21/24 05:48 Hgb 9.40 g/dL (11.27-16.99) L 02/21/24 05:48 Hct 28.6 % (36-47) L 02/21/24 05:48 MCV 89.9 fl (85-98) 02/21/24 05:48 MCH 29.6 pg (27-33) 02/21/24 05:48 MCHC 32.9 g/dL (30-55) 02/21/24 05:48 RDW 12.2 % (12.1-15.1) 02/21/24 05:48 Plt Count 167 10^3/cmm (157-399) 02/21/24 05:48 MPV 10.7 fL (7.4-10.4) H 02/21/24 05:48 Neut % (Auto) 60.7 % 02/12/24 10:01 Lymph % (Auto) 30.9 % 02/12/24 10:01 Worth % (Auto) 6.1 % 02/12/24 10:01 Eos % (Auto) 1.5 % 02/12/24 10:01 Baso % (Auto) 0.5 % 02/12/24 10:01 Neut # (Auto) 5.36 10^3/uL (1.8-7.7) 02/12/24 10:01 Lymph # (Auto) 2.7 10^3/uL (0.8-4.8) 02/12/24 10:01 Worth # (Auto) 0.5 10^3/uL (0.2-0.9) 02/12/24 10:01 Eos # (Auto) 0.1 10^3/uL (0.0-0.8) 02/12/24 10:01 Baso # (Auto) 0.0 10^3/uL (0.0-0.1) 02/12/24 10:01 Nucleated RBC % (auto) 0 % 02/12/24 10:01 Nucleated RBCs # 0.0 /100WBC 02/12/24 10:01 Sodium 139 mmol/L (136-145) 02/12/24 10:01 Potassium 5.2 mmol/L (3.5-5.1) H 02/12/24 10:01 Chloride 103 mmol/L (98-107) 02/12/24 10:01 Carbon Dioxide 28 mmol/L (22-29) 02/12/24 10:01 Anion Gap 13.2 (5-19) 02/12/24 10:01 BUN 41 mg/dL (8-23) H 02/12/24 10:01 Creatinine 1.2 mg/dL (0.5-0.9) H 02/12/24 10:01 GFR Calculation 44.9 mL/min (90-130) L 02/12/24 10:01 Glucose 95 mg/dL (65-115) 02/12/24 10:01 POC Glucose 87 mg/dL (70-110) 02/20/24 06:29 Calculated Osmolality 298 mOsm/kg (285-295) H 02/12/24 10:01 Calcium 9.8 mg/dL (8.5-10.5) 02/12/24 10:01 Total Bilirubin 0.4 mg/dL (0.15-1.2) 02/12/24 10:01 AST 19 U/L (0-32) 02/12/24 10:01 ALT 16 U/L (0-33) 02/12/24 10:01 Alkaline Phosphatase 77 U/L (35-105) 02/12/24 10:01 Total Protein 8.0 g/dL (6.6-8.7) 02/12/24 10:01 Albumin 4.2 g/dL (3.5-5.2) 02/12/24 10:01 Globulin 3.8 g/dL (1.3-4.6) 02/12/24 10:01 Urine Color Yellow (Yellow) 02/12/24 10:04 Urine Appearance Slightly cloudy (CLEAR) 02/12/24 10:04 Urine pH 8 (5-7) H 02/12/24 10:04 Ur Specific [place] 1.010 (1.005-1.030) 02/12/24 10:04 Urine Protein Neg (Negative) 02/12/24 10:04 Urine Glucose (UA) 4+ (Normal) H 02/12/24 10:04 Urine Ketones Negative (Negative) 02/12/24 10:04 Urine Blood 2+ (Negative) H 02/12/24 10:04 Urine Nitrate Negative (Negative) 02/12/24 10:04 Urine Bilirubin Neg (Negative) 02/12/24 10:04 Urine Urobilinogen Norm mg/dL (Negative) 02/12/24 10:04 Ur Leukocyte Esterase 2+ (Negative) H 02/12/24 10:04 Urine RBC None /hpf (0-2) 02/12/24 10:04 Urine WBC 15-25 /hpf (0-5) H 02/12/24 10:04 Ur Squamous Epith Cells 0-4 /hpf (0-5) H 02/12/24 10:04 Ur Transition Epith Cell 0-4 /hpf 02/12/24 10:04 Amorphous Sediment Not Reportable 02/12/24 10:04 Urine Bacteria 4+ /hpf (NONE) H 02/12/24 10:04 Blood Type O Positive 02/20/24 06:58 Rho(D) Type Rh positive 02/20/24 06:58 Antibody Screen Negative 02/20/24 06:58 Vitals Last Vital Signs Temp 97.9 F 02/21/24 07:05 Pulse 50 L 02/21/24 07:05 Resp 18 02/21/24 07:05 BP 137/72 02/21/24 07:05 Pulse Ox 98 02/21/24 07:05 O2 Del Method Room Air 02/21/24 07:05 O2 Flow Rate 6 02/20/24 11:25 Results Labs OB ([facility]): Blood Type O Positive 02/20/24 Antibody Screen Negative 02/20/24 Hct 28.6 % (36-47) L 02/21/24 Hgb 9.40 g/dL (11.27-16.99) L 02/21/24 Rho(D) Type Rh positive 02/20/24 Plt Count 167 10^3/cmm (157-399) 02/21/24 Micro Urine Specimen 02/12/24 Discharge Plan Discharge Patient Disposition: Home Condition: Stable Prescriptions: New hydrocodone-acetaminophen 5-325 mg tablet 1 tab PO Q4H PRN (Reason: pain) Qty: 20 0RF acetaminophen 325 mg capsule 325 mg PO Q4H PRN (Reason: fever or pain) Qty: 60 0RF ferrous sulfate [Iron (ferrous sulfate)] 325 mg (65 mg iron) tablet 325 mg PO BID Qty: 60 0RF ibuprofen 800 mg tablet 800 mg PO TID PRN (Reason: pain) Qty: 60 0RF docusate sodium [Colace] 100 mg capsule 100 mg PO BID Qty: 60 0RF Continued metformin 850 mg tablet 850 mg PO DAILY pravastatin 40 mg tablet 40 mg PO BEDTIME melatonin 5 mg capsule 5 mg PO BEDTIME dapagliflozin propanediol [Farxiga] 5 mg tablet 5 mg PO DAILY lisinopril 10 mg tablet 10 mg PO DAILY aspirin 325 mg tablet 325 mg PO DAILY Discharge Orders: Discharge Order (Routine); Ordered 02/21/24 Ordered By: Aaron Allen Referrals: Aaron Allen MD [Physician] - 2 weeks Discharge Diet: Usual diet Discharge Activity: Limit activity as instructed Patient Instructions: Urinary Bladder Suspension (DC), Acute Wound Care (DC), Opioid Safety (DC), Bladder Sling for Women (DC), Anterior Vaginal Repair (DC), Posterior Vaginal Repair (DC), OB Discharge Report, OB Food/Drug Interaction Guide, Opioid Safety, Post Anesthesia Care Activity Restrictions/Additional Instructions: 1. Please call [facility] on next working day to make your post-operative appointment in 2 weeks. 2. Please stay home until you come back to the clinic on first post- hospatilization check up. 3. Please follow instructions on your medications CAREFULLY. 4. If you have abdominal incision, do not cover it unless dressing is necessary because of drainage. OK to shower, but avoid bath. Leave steri-strips until they fall off. If they are still on one week after surgery, you may remove them. 5. If you had vaginal surgery or vaginal repair, Dr. Allen may instruct you to take SITZ bath. 6. Yellow, blood tinged odorous vaginal discharge is usually normal after hysterectomy or vaginal surgeries. 7. No SEXUAL INTERCOURSE, tampons, or douches until you are completely released from the post-operative care. 8. Avoid constipation by eating right and maybe using some Metamucil or Milk of Magnesia. 9. All prescription refills are given during the working hours. Please do no wait till it runs out. Call the clinic at [phone] before your medication runs out. The clinic will get in touch with your doctor to prescribe medications if necessary. 10. Please remain within 40 mile radius from our hospital because emergencies do happen now and then during the post-operative period. 11. If you have stairs at home, take one step at a time slowly and minimize the number of trips. It helps to stay in one floor for the next few days. No lifting except what you can lift by one hand until you are released from the post-operative care. 12. Driving is discouraged until you are well healed. It may be 3-4 weeks before you feel strong enough to drive. You should be able to turn and look through the rear window without pain and you should be able to push the brake pedal very hard without pain before you drive. No fast rules, but SAFETY should be your primary concern. DO NOT drive if you are on sedating medications such as narcotics. 13. Call the clinic (during working hours) to make urgent appointment or go to the Emergency room, if any of the following occurs: i. Vaginal bleeding becomes heavy, more than a period. ii. Incision becomes red and sore, or drains pus. iii. Your TEMPERATURE is over 100.4F or you have chill. iv. IV site becomes red and swollen (a little ``knot?? is usually OK) v. Persistent nausea and vomiting vi. Persistent constipation or diarrhea vii. Rash or allergic reaction to medications. Discharge Attestations CERTIFIED NUCLEAR MEDICINE TECHNOLOGIST Time Spent in Discharge Care*: greater than 30 min Coding Level of Care Code Acute Code for Chg Fwd
[2024-02-21] MEDS: docusate sodium 100 mg Capsule PO (10:58)
[2024-02-21] MEDS: lisinopril 10 mg Tablet PO (10:58)
[2024-02-21] MEDS: nitrofurantoin SR (BID) 100 mg Capsule PO (10:59)
[2024-02-21] MEDS: metformin 850 mg Tablet PO (10:59)
[2024-02-21] MEDS: aspirin 325 mg Tablet PO (10:59)
[2024-02-21 11:02] VITALS: BP 122/56; PULSE 62; RESP 16; TEMP 36.6; O2SAT 97
[2024-02-21 11:24] VITALS: BP 122/56; PULSE 62; RESP 16; TEMP 36.6; O2SAT 97
== END 2024-02-21 11:24 | disposition home or self-care (01) ==
LOC: OBGYN 15:19
PROVIDERS: Admitting Provider Obstetrics & Gynecology; PCP Family Medicine; Visit Provider Obstetrics & Gynecology
PROC: (CPT 57240; principal; 2024-02-20 08:00)
PROC: (CPT 58720; 2024-02-20 08:00)
PROC: 0JQC0ZZ Repair Pelvic Region Subcutaneous Tissue and Fascia, Open Approach (ICD-10-PCS; CPT 57240; 2024-02-20 08:00)
PROC: (CPT 57250; 2024-02-20 08:00)
PROC: (CPT 57288; 2024-02-20 08:00)
PROC: (CPT 57282; 2024-02-20 08:00)
PROC: 0TJB8ZZ Inspection of Bladder, Via Natural or Artificial Opening Endoscopic (ICD-10-PCS; CPT 52000; 2024-02-20 08:00)
DX: N81.4 Uterovaginal prolapse, unspecified (principal); N72 Inflammatory disease of cervix uteri; I10 Essential (primary) hypertension; E11.9 Type 2 diabetes mellitus without complications; Z86.73 Personal history of transient ischemic attack (TIA), and cerebral infarction without residual deficits; Z79.84 Long term (current) use of oral hypoglycemic drugs
CPT/HCPCS: 57240; 57282; 57288; 58262; 36415; 36416; 51798; 80053; 81001; 82962; 85025; 85027; 86850; 86900; 87077; 87086; 87186; 88307; 93005; C1713; C1762; G0378; J0131; J0694; J1100; J1170; J1200; J1650; J1885; J2371; J2405; J2704; J2710; J3010; J3490; J7030; J7040

== ENCOUNTER 2024-11-29 09:09 | Outpatient (CLI) | payer MEDICARE, SELFPAY ==
--- NOTE | 2024-11-29 09:12 | MM_ITS ---
WS: [id number] BILATERAL SCREENING DIGITAL TOMOSYNTHESIS MAMMOGRAM WITH CAD HISTORY: SCREENING COMPARISON: 11/15/2023, 10/17/2022 Bilateral CC and MLO views with tomosynthesis and synthetic mammography submitted. Computer aided detection analyzed. Breast composition: There are scattered areas of fibroglandular density. No suspicious masses, microcalcifications or architectural distortion. Bilateral breast arterial calcifications. MM/MM scr BI tomosynthesis [id number] IMPRESSION: BI-RADS: 2 - Benign. FOLLOW UP: 1 Year Follow-up
== END 2024-11-29 09:10 | disposition home or self-care (01) ==
PROVIDERS: PCP Family Medicine; Visit Provider Family Medicine
DX: Z12.31 Encounter for screening mammogram for malignant neoplasm of breast (principal); R92.323 Mammographic fibroglandular density, bilateral breasts; R92.1 Mammographic calcification found on diagnostic imaging of breast
CPT/HCPCS: 77063; 77067